=== PATIENT | male | born 1980 | race Caucasian/White ===

== ENCOUNTER 2023-04-21 23:09 | Emergency (ER) | payer OTHER ==
[2023-04-22] MEDS ORDERED: Lorazepam 1 MG TAB ONE (05:11)
== END 2023-04-22 06:05 | disposition home or self-care (01) ==
LOC: CSHERS 23:09
DX: F10.129 Alcohol abuse with intoxication, unspecified (principal); I48.91 Unspecified atrial fibrillation; Z79.899 Other long term (current) drug therapy
CPT/HCPCS: 36415; 80307; 99283